=== PATIENT | female | born 1980 | race Caucasian/White ===

== ENCOUNTER 2022-08-07 11:21 | Emergency (ER) | payer BC, OTHER ==
[~2022-08-07] VITALS: Ht 172.7 cm; Wt 127.0 kg
[2022-08-07 11:26] VITALS: BP_SYST 147
--- NOTE | 2022-08-07 11:30 | NUR ---
Placed in room 01 . Placed on paper handler, blood pressure machine and pulse oximeter. To gown for exam. Side rails up. Report given to ELICEO HOLDEN.
--- NOTE | 2022-08-07 11:36 | NUR ---
PT BIB AWAKE AND ALERT AOX4, NO SOB OR DISTRESS. PT C/O CHEST PAIN THAT RADIATES TO HER BACK, STARTING YESTEDAY AT 4PM. PT STATES SHE IS 20 WEEKS PREGNATE. ONLY MED HX IS GERD. PT DENIES N/V.
--- NOTE | 2022-08-07 11:38 | NUR ---
MD DR CHRISTENSEN AT BEDSIDE
[2022-08-07] MEDS ORDERED: MAG HYDROX/AL HYDROX/SIMETH 30 ML, DICYCLOMINE HCL 20 MG, LIDOCAINE VISCOUS 2% 15ML (PO... PO ONE ×3 (12:00)
[2022-08-07] MEDS ORDERED: ACETAMINOPHEN 500 MG TABLET PO ONE (12:45)
[2022-08-07] MEDS ORDERED: OMEP40CA20 PO (13:27)
[2022-08-07 15:17] VITALS: BP_SYST 135
--- NOTE | 2022-08-07 15:20 | NUR ---
Patient given written and verbal discharge instructions and verbalizes understanding. ER MD CHRISTENSEN discussed with patient the results and treatment provided. Patient in stable condition. ID arm band removed. Patient educated on pain management and to follow up with PMD. Pain Scale 2/10. Opportunity for questions provided and answered. Medication side effect fact sheet provided.
== END 2022-08-07 15:20 | disposition home or self-care (01) ==
LOC: SED 11:21
DX: O26.892 Other specified pregnancy related conditions, second trimester (principal); Z3A.20 20 weeks gestation of pregnancy; Z79.899 Other long term (current) drug therapy
CPT/HCPCS: 99283; J2001

== ENCOUNTER 2022-08-11 10:59 | Observation (INO) | payer BC ==
[~2022-08-11] VITALS: Ht 172.7 cm; Wt 122.5 kg
[~2022-08-11 10:59] MED LIST: OMEP40CA20 PO
[2022-08-11 12:46] LABS: BASOPHILS % (AUTO) 0.4 % (0.0-2.0); EOSINOPHILS # (AUTO) 0.2 K/uL (0.0-0.4); EOSINOPHILS % (AUTO) 1.4 % (0.0-4.0); HEMATOCRIT 31.7 % (36-48); HEMOGLOBIN 10.3 g/dL (12.0-16.0); LYMPHOCYTES # (AUTO) 1.5 K/uL (1.0-5.5); LYMPHOCYTES % (AUTO) 11.9 % (20.5-51.5); MEAN CORPUSCULAR HEMOGLOBIN 27 pg (27-31); MEAN CORPUSCULAR HGB CONC 33 % (32-36); MEAN CORPUSCULAR VOLUME 82 fL (79.0-98.0); MONOCYTES # (AUTO) 0.6 K/uL (0.0-1.0); MONOCYTES % (AUTO) 5.2 % (1.7-9.3); NEUTROPHILS # (AUTO) 10.1 K/uL (1.8-7.7); NEUTROPHILS % (AUTO) 81.1 % (40.0-70.0); PLATELET COUNT (AUTO) 256 K/uL (130-430); RED BLOOD CELL COUNT(AUTO) 3.89 MIL/uL (4.2-6.2); RED CELL DISTRIBUTION WIDTH 14.6 % (9.0-15.0); WHITE BLOOD COUNT (AUTO) 12.4 K/uL (4.8-10.8)
[2022-08-11 13:01] LABS: CALCIUM 8.9 mg/dL (8.4-11.0); CREATININE 0.45 mg/dL (0.55-1.30)
[2022-08-11 13:05] LABS: ALBUMIN 2.2 g/dL (3.4-4.8); TOTAL BILIRUBIN 0.4 mg/dL (0.0-1.0)
[2022-08-11] MEDS: LR 1,000 ML IV SCH (19:42)
[2022-08-11] MEDS ORDERED: TEMAZEPAM 15 MG CAPSULE PO PRN (21:45)
[2022-08-11 22:08] LABS: BLOOD, URINE NEGATIVE (NEGATIVE); CLARITY/URINE CLEAR (CLEAR); GLUCOSE,URINE NEGATIVE (NEGATIVE); KETONES,URINE 3+ (NEGATIVE); LEUKOCYTE ESTERASE ,URINE TRACE (NEGATIVE); NITRITE, URINE NEGATIVE (NEGATIVE); PROTEIN URINE TRACE (NEGATIVE)
[2022-08-11 22:17] LABS: COLOR,URINE AMBER (YELLOW)
[2022-08-11 22:20] LABS: BACTERIA,URINE FEW /HPF (None Seen); MUCUS,URINE None Seen /LPF (None Seen); RBC,URINE NONE SEEN /HPF (0-3)
[2022-08-11 22:33] LABS: BILIRUBIN,URINE 1+ (NEGATIVE)
[2022-08-12] MEDS: LR 1,000 ML IV SCH (03:40)
[2022-08-12 06:03] LABS: CALCIUM 8.5 mg/dL (8.4-11.0); CREATININE 0.59 mg/dL (0.55-1.30); TOTAL BILIRUBIN 0.4 mg/dL (0.0-1.0)
== END 2022-08-12 17:20 | disposition home or self-care (01) ==
LOC: SPU 10:59
PROVIDERS: ADMIT Specialist; ATTEND Specialist
DX: O99.612 Diseases of the digestive system complicating pregnancy, second trimester (principal); K80.70 Calculus of gallbladder and bile duct without cholecystitis without obstruction; Z3A.20 20 weeks gestation of pregnancy
CPT/HCPCS: 96360; 96361 ×2; 80053 ×2; 81000; 85025; 36415; 76700; G0378 ×2; G0379

== ENCOUNTER 2022-12-18 11:05 | Inpatient (IN) | payer BC ==
[~2022-12-18] VITALS: Ht 172.7 cm; Wt 135.6 kg
[2022-12-18] MEDS ORDERED: AMPICILLIN SODIUM 2 GM in NS 100 ML IV ONE (16:45)
[2022-12-18] MEDS ORDERED: LR 1,000 ML IV SCH (16:45)
[2022-12-18] MEDS ORDERED: OXYTOCIN/0.9 % SODIUM CHLORIDE 1,000 ML IV SCH (16:45)
[2022-12-18 17:07] VITALS: BP_SYST 138; PULSE 69; RESP 18; TEMP 97.7
[2022-12-18 17:14] LABS: BASOPHILS # (AUTO) 0.1 K/uL (0.0-0.2); BASOPHILS % (AUTO) 0.6 % (0.0-2.0); EOSINOPHILS # (AUTO) 0.1 K/uL (0.0-0.4); EOSINOPHILS % (AUTO) 1.3 % (0.0-4.0); HEMATOCRIT 29.1 % (36-48); HEMOGLOBIN 9.6 g/dL (12.0-16.0); LYMPHOCYTES # (AUTO) 1.7 K/uL (1.0-5.5); LYMPHOCYTES % (AUTO) 16.4 % (20.5-51.5); MEAN CORPUSCULAR HEMOGLOBIN 26 pg (27-31); MEAN CORPUSCULAR HGB CONC 33 % (32-36); MEAN CORPUSCULAR VOLUME 79 fL (79.0-98.0); MONOCYTES # (AUTO) 0.4 K/uL (0.0-1.0); MONOCYTES % (AUTO) 3.5 % (1.7-9.3); NEUTROPHILS # (AUTO) 8.3 K/uL (1.8-7.7); NEUTROPHILS % (AUTO) 78.2 % (40.0-70.0); PLATELET COUNT (AUTO) 246 K/uL (130-430); RED BLOOD CELL COUNT(AUTO) 3.67 MIL/uL (4.2-6.2); RED CELL DISTRIBUTION WIDTH 15.3 % (9.0-15.0); WHITE BLOOD COUNT (AUTO) 10.5 K/uL (4.8-10.8)
[2022-12-18] MEDS ORDERED: MEPERIDINE HCL/PF 25 MG/ML DISP.SYRIN ONE ×3 (19:26→22:28)
[2022-12-18] MEDS ORDERED: MEPERIDINE HCL/PF 25 MG/ML DISP.SYRIN IM ONE (22:15)
[2022-12-19] MEDS: AMPICILLIN SODIUM 1 GM in NS 50 ML IV SCH ×4 (02:58→14:51)
[2022-12-19] MEDS ORDERED: FENT2mCg/mL-ROPIVA0.2%/NS EPID 200 ML EP SCH (07:00)
[2022-12-19] MEDS ORDERED: fentaNYL CITRATE/PF 100 MCG/2 ML AMP ONE ×2 (07:12→18:09)
[2022-12-19] MEDS ORDERED: ROPIVACAINE HCL/PF 0.2% 200 ML ONE (07:12)
[2022-12-19] MEDS ORDERED: BUPIVACAINE /PF 0.25% 30 ML VIAL INJ ONE (09:35)
[2022-12-19] MEDS ORDERED: CEFAZOLIN 2 GM IVPB PREMIX 50 ML IV ONE (15:45)
[2022-12-19] MEDS ORDERED: MIDAZOLAM HCL/PF 2 MG/2 ML SYRINGE ONE (18:09)
[2022-12-19] MEDS ORDERED: HYDROMORPHONE HCL IN 0.9% NACL 0.2 MG/ML DRIP IV ONE (18:09)
[2022-12-19] MEDS ORDERED: WATER FOR IRRIGATION,STERILE 1,000 ML IRRIG.SOLN IR ONE (18:09)
[2022-12-19] MEDS ORDERED: OXYTOCIN 10 UNIT/ML VIAL ONE (18:09)
[2022-12-19] MEDS ORDERED: LR 1,000 ML IV.SOLN IV ONE (18:09)
[2022-12-19] MEDS ORDERED: ONDANSETRON HCL 4 MG/2 ML VIAL ONE (18:09)
[2022-12-19] MEDS ORDERED: MORPHINE SULFATE 10 MG/ML VIAL ONE (18:09)
[2022-12-19] MEDS ORDERED: METOCLOPRAMIDE HCL 10 MG/2 ML VIAL ONE (18:09)
[2022-12-19] MEDS ORDERED: NS IRRIG SOLN 1000 ML IR ONE (18:09)
[2022-12-19] MEDS ORDERED: DIPHENHYDRAMINE INJ 50 MG/ML VIAL IM PRN (19:15)
[2022-12-19] MEDS ORDERED: LR 1,000 ML IV SCH (19:15)
[2022-12-19] MEDS ORDERED: ONDANSETRON HCL 4 MG/2 ML VIAL IVP PRN (19:15)
[2022-12-19] MEDS ORDERED: KETOROLAC TROMETHAMINE 60 MG/2 ML VIAL IM PRN (19:15)
[2022-12-19] MEDS ORDERED: TEMAZEPAM 15 MG CAPSULE PO PRN (19:15)
[2022-12-19] MEDS ORDERED: ANUSOL 1 EA SUPP.RECT (PREPARATION H) RC PRN (19:15)
[2022-12-19] MEDS ORDERED: DIPHTH,PERTUSS(ACELL),TET VAC 0.5 ML VIAL (Tdap) I.M. PRN (19:15)
[2022-12-19] MEDS ORDERED: HYDROcodone/ACETAMIN 5-325 MG TAB (NORCO/ VICODIN) PO PRN (19:15)
[2022-12-19] MEDS ORDERED: MEASLES,MUMPS&RUBELLA VACC/PF 12500 UNIT/0.5 ML VIAL SUBQ PRN (19:15)
[2022-12-19] MEDS ORDERED: OXYCODONE/ACETAMINOPHEN 5-325 TABLET PO PRN (19:15)
[2022-12-19] MEDS ORDERED: MORPHINE SULFATE 10MG/10ML PF AMP EP ONE (19:15)
[2022-12-19] MEDS ORDERED: LANOLIN 7 GM OINT. TP PRN (19:15)
[2022-12-19] MEDS ORDERED: NALOXONE HCL 0.4 MG/ML AMP (NARCAN) IVP PRN ×2 (19:15)
[2022-12-19] MEDS ORDERED: RHO(D) IMMUNE GLOBULIN/MALTOSE 1500 UNITS/1.3 ML (WINHRO) IM PRN (19:15)
[2022-12-19 20:39] VITALS: BP_SYST 129
[2022-12-19] MEDS ORDERED: SENNOSIDES/DOCUSATE SODIUM 1 TAB TABLET(SENOKOT-S) PO SCH (21:00)
[2022-12-19] MEDS: OXYTOCIN/0.9 % SODIUM CHLORIDE 1,000 ML IV SCH (23:24)
[2022-12-20] MEDS: CEFAZOLIN 1 GM IVPB PREMIX 50 ML IV SCH ×3 (00:32→12:15)
[2022-12-20 06:13] LABS: BASOPHILS % (AUTO) 0.4 % (0.0-2.0); EOSINOPHILS # (AUTO) 0.1 K/uL (0.0-0.4); EOSINOPHILS % (AUTO) 0.8 % (0.0-4.0); HEMATOCRIT 26.4 % (36-48); HEMOGLOBIN 8.5 g/dL (12.0-16.0); LYMPHOCYTES # (AUTO) 1.5 K/uL (1.0-5.5); LYMPHOCYTES % (AUTO) 15.4 % (20.5-51.5); MEAN CORPUSCULAR HEMOGLOBIN 26 pg (27-31); MEAN CORPUSCULAR HGB CONC 32 % (32-36); MEAN CORPUSCULAR VOLUME 79 fL (79.0-98.0); MONOCYTES # (AUTO) 0.5 K/uL (0.0-1.0); MONOCYTES % (AUTO) 4.6 % (1.7-9.3); NEUTROPHILS # (AUTO) 7.7 K/uL (1.8-7.7); NEUTROPHILS % (AUTO) 78.8 % (40.0-70.0); PLATELET COUNT (AUTO) 217 K/uL (130-430); RED BLOOD CELL COUNT(AUTO) 3.32 MIL/uL (4.2-6.2); RED CELL DISTRIBUTION WIDTH 15.2 % (9.0-15.0); WHITE BLOOD COUNT (AUTO) 9.8 K/uL (4.8-10.8)
[2022-12-20] MEDS: KETOROLAC TROMETHAMINE 30 MG VIAL IVP SCH ×3 (06:18→18:05)
[2022-12-20] MEDS: SIMETHICONE 80 MG TAB.CHEW PO SCH ×5 (08:33→20:18)
[2022-12-20] MEDS: OXYTOCIN/0.9 % SODIUM CHLORIDE 1,000 ML IV SCH ×2 (09:11→18:06)
[2022-12-20] MEDS ORDERED: PERC10 PO (11:42)
[2022-12-20] MEDS: DOCUSATE SODIUM 100 MG CAPSULE PO SCH (20:17)
[2022-12-20] MEDS: OXYCODONE/ACETAMINOPHEN *10*mg/325 mg TABLET PO PRN (20:17)
[2022-12-21] MEDS: BISACODYL 10 MG/SUPPOSITORY RC SCH ×2 (01:26→09:00)
[2022-12-21] MEDS: SIMETHICONE 80 MG TAB.CHEW PO SCH ×4 (04:02→17:58)
[2022-12-21] MEDS: OXYCODONE/ACETAMINOPHEN *10*mg/325 mg TABLET PO PRN ×4 (04:02→17:32)
[2022-12-21] MEDS: IBUPROFEN 600 MG TABLET PO SCH ×3 (06:30→18:00)
[2022-12-21] MEDS: DOCUSATE SODIUM 100 MG CAPSULE PO SCH (09:23)
== END 2022-12-21 18:25 | disposition home or self-care (01) | DRG 787 ==
LOC: SPU 15:11
PROVIDERS: ADMIT Specialist; ATTEND Specialist
PROC: 10D00Z1 Extraction of Products of Conception, Low, Open Approach (ICD-10-PCS; principal; 2022-12-19 18:00)
DX: O24.429 Gestational diabetes mellitus in childbirth, unspecified control (principal); D62 Acute posthemorrhagic anemia; O99.214 Obesity complicating childbirth; O36.63X0 Maternal care for excessive fetal growth, third trimester, not applicable or unspecified; O61.9 Failed induction of labor, unspecified; O62.2 Other uterine inertia; E66.01 Morbid (severe) obesity due to excess calories; Z3A.00 Weeks of gestation of pregnancy not specified; Z37.0 Single live birth
CPT/HCPCS: 36415; 81002; 82947; 82962; 85025; 86592; 86886; 86900; 86901; 94760; J0290; J0690; J1885; J2175; J2270; J2405; J2590; J2765; J3010; J3465; J3490; J7120